=== PATIENT | male | born 1985 | race Two or more races ===

== ENCOUNTER 2021-01-02 05:43 | Day surgery (SDC) | payer OTHER | END 2021-01-02 09:25 | disposition home or self-care (01) | LOC: AMB-ENDOS 05:43 | PROVIDERS: ATTEND Surgery | DX: K29.60 Other gastritis without bleeding (principal); K44.9 Diaphragmatic hernia without obstruction or gangrene; Z20.822 Contact with and (suspected) exposure to COVID-19 ==

== ENCOUNTER 2021-01-14 08:52 | Outpatient (CLI) | payer OTHER | END 2021-01-14 08:55 | disposition home or self-care (01) | LOC: NUCLEAR 08:52 | PROVIDERS: ATTEND Surgery | DX: E66.01 Morbid (severe) obesity due to excess calories (principal); I47.2 Ventricular tachycardia; Z68.34 Body mass index [BMI] 34.0-34.9, adult ==